=== PATIENT | male | born 1955 | race Caucasian/White ===

== ENCOUNTER 2018-04-07 09:48 | Observation (INO) ==
[2018-04-07 10:33] LABS: Basophils % 0.4 %; Eosinophils % 0.4 %; Hematocrit 46.3 % (37.5-50.1); Hemoglobin 16.9 g/dL (12.9-16.9); Immature Granulocytes % 0.4 % (0-4); Lymphocytes # 1.8 K/mcL (0.6-4.6); Lymphocytes % 25.3 %; Mean Corpuscular HGB Conc 36.5 g/dL (31.6-35.5); Mean Corpuscular Hemoglobin 31.7 pg (28.0-33.3); Mean Corpuscular Volume 86.9 fL (83.0-100.0); Mean Platelet Volume 10.4 fL (9.4-12.4); Monocytes # 0.7 K/mcL (0.0-1.3); Monocytes % 10.3 %; Neutrophils # 4.5 K/mcL (1.6-8.9); Platelet Count 143 K/mcL (140-400); Red Blood Count 5.33 M/mcL (4.19-5.50); Red Cell Distribution Width 13.4 % (11.5-14.5); Segmented Neutrophils % 63.2 %
[2018-04-07 10:38] LABS: INR 1.2; Prothrombin Time 12.8 Seconds (9.4-12.1)
--- NOTE | 2018-04-07 10:41 | Emergency Department Note ---
Disposition Clinical Impression: GI bleed Qualifiers: GI bleed type/associated pathology: unspecified gastrointestinal hemorrhage type Qualified Code(s): K92.2 - Gastrointestinal hemorrhage, unspecified Disposition: Admitted As Inpatient Condition: Good Referrals: Mona Funk MD [Primary Care Provider] - Forms: ED Satisfaction Letter GI Bleed HPI - General Chief complaint: ED GI Bleed Stated complaint: tarry stools from UC Time Seen by Provider: 04/07/18 09:55 Source: patient, family Limitations: no limitations Nursing Notes Reviewed: Yes Vital Signs Reviewed: Yes - History of Present Illness HPI Narrative: Patient presents today for evaluation of dark tarry stools. Sent from urgent care. Patient states that he has had symptoms for approximately 3 weeks. Started with initial episode of black tarry stool. Patient has since had several episodes of coffee-ground emesis. Patient states that he has had fatigue over the last 2 weeks. Over the last several days he has had exertional dyspnea as well as dizziness upon standing. Patient does have a history of abnormal endoscopy with precancerous cells that was greater than 5 years ago. Patient does take aspirin and occasional NSAIDs for aches and pains. Patient does not drink alcohol. - Related Data Home Medications Medication Instructions Recorded Confirmed Atorvastatin [Lipitor] 10 mg PO HS 04/07/18 04/07/18 Losartan [Cozaar] 25 mg PO DAILY 04/07/18 04/07/18 Metoprolol Succinate [Toprol Xl] 25 mg PO DAILY 04/07/18 04/07/18 Omeprazole [PriLOSEC] 40 mg PO DAILY 04/07/18 04/07/18 Allergies Allergy/AdvReac Type Severity Reaction Status Date / Time codeine Allergy Gastrointestinal Verified 04/07/18 12:19 Upset Review of Systems: CONSTITUTIONAL: No weight loss, fever, chills, weakness or fatigue. HEENT: Eyes: No visual changes. Ears, Nose, Throat: No hearing loss, difficulty talking or unable to swallow. SKIN: No rash or itching. CARDIOVASCULAR: No chest pain, chest pressure or chest discomfort. No palpitations or edema. RESPIRATORY: No shortness of breath, cough or sputum. GASTROINTESTINAL: Coffee-ground emesis and dark tarry stool GENITOURINARY: No burning on urination or hematuria. NEUROLOGICAL: Dizziness upon standing No headache, syncope, paralysis, ataxia, numbness or tingling in the extremities. No change in bowel or bladder control. MUSCULOSKELETAL: No muscle pain, back pain, joint pain or stiffness. Past Medical History - Past Medical History Medical history: Reports: non-contributory, aortic aneurysm, hypertension Psychiatric history: Reports: no psych history - Social History Smoking Status: Never smoker Smokeless Tobacco Status: No Alcohol use: Reports: none Drug use: Reports: none Physical Exam General: Well appearing, nontoxic, no acute distress Head: Normocephalic Atraumatic Eyes: PERRL, EOMI ENT: Airway patent, no stridor Neck: supple, no meningismus Chest: Lungs clear to auscultation bilateral Cardiac: Regular rate and rhythm, no murmurs, rubs or gallops Abdomen: soft, nontender, nondistended; no guarding, rebound, or tenderness to percussion Rectal exam shows a clean rectal vault without significant stool sample. Musculoskeletal: Calves symmetric, nontender, no palpable cord Skin: No rash, normal skin tone Neuro: Alert and Oriented to person, place, and time; No focal deficit - General Limitations: no limitations General appearance: alert, in no apparent distress Course - Reevaluation(s) Reevaluation #1: Patient's hemoglobin is stable. Patient did have a low blood pressure upon arrival. Patient does describe a significant history of melena as well as coffee-ground emesis. Patient not actively bleeding at this time. The patient was given Protonix as well as placed on a Protonix drip. Abnormal endoscopy in the past. Family history of esophageal cancer as well as colon cancer. - Consultations Consultation #1: Discussed with hospitalist. Patient accepted for admission. Vital Signs Temperature 97.8 F 04/07/18 09:49 Pulse Rate 106 04/07/18 09:49 Respiratory Rate 18 04/07/18 09:49 Blood Pressure 101/41 04/07/18 09:49 O2 Sat by Pulse Oximetry 96 04/07/18 09:49 Temperature 97.8 F 04/07/18 09:56 Pulse Rate 82 04/07/18 11:31 Respiratory Rate 18 04/07/18 11:31 Blood Pressure 111/80 04/07/18 11:31 O2 Sat by Pulse Oximetry 95 04/07/18 11:31 Oxygen Delivery Oxygen Delivery Room Air GI Bleed - Medical Records Medical records reviewed: Yes I reviewed the patient's medical records. - Lab Data Lab results reviewed: Yes I reviewed the patient's lab results. Result diagrams: 04/07/18 10:15 04/07/18 10:15 Lab Results 04/07/18 04/07/18 04/07/18 Range/Units 10:15 10:15 10:15 WBC 7.2 (4.3-11.1) K/mcL RBC 5.33 (4.19-5.50) M/mcL Hgb 16.9 (12.9-16.9) g/dL Hct 46.3 (37.5-50.1) % MCV 86.9 (83.0-100.0) fL MCH 31.7 (28.0-33.3) pg MCHC 36.5 H (31.6-35.5) g/dL RDW 13.4 (11.5-14.5) % Plt Count 143 (140-400) K/mcL MPV 10.4 (9.4-12.4) fL Immature Gran % 0.4 (0-4) % Seg Neutrophils % 63.2 % Lymphocytes % 25.3 % Monocytes % 10.3 % Eosinophils % 0.4 % Basophils % 0.4 % Neutrophils # 4.5 (1.6-8.9) K/mcL Lymphocytes # 1.8 (0.6-4.6) K/mcL Monocytes # 0.7 (0.0-1.3) K/mcL Eosinophils # 0.0 (0.0-0.6) K/mcL Basophils # 0.0 (0.0-0.2) K/mcL PT 12.8 H (9.4-12.1) Seconds INR 1.2 Sodium 134 L (136-145) mEq/L Potassium 3.6 (3.5-5.1) mEq/L Chloride 103 (98-107) mEq/L Carbon Dioxide 22 L (23-29) mEq/L BUN 23 (8-23) mg/dL Creatinine 1.23 (0.70-1.30) mg/dL Est GFR ( Amer) > 60 (> 60) Est GFR (Non-Af Amer) 59 L (> 60) BUN/Creatinine Ratio 19 (6-26) Glucose 105 (70-105) mg/dL Calculated Osmolality 282 (280-300) Calcium 9.0 (8.6-10.3) mg/dL Troponin I < 0.03 (< 0.04) ng/mL Blood Type Antibody Screen 04/07/18 Range/Units 10:15 WBC (4.3-11.1) K/mcL RBC (4.19-5.50) M/mcL Hgb (12.9-16.9) g/dL Hct (37.5-50.1) % MCV (83.0-100.0) fL MCH (28.0-33.3) pg MCHC (31.6-35.5) g/dL RDW (11.5-14.5) % Plt Count (140-400) K/mcL MPV (9.4-12.4) fL Immature Gran % (0-4) % Seg Neutrophils % % Lymphocytes % % Monocytes % % Eosinophils % % Basophils % % Neutrophils # (1.6-8.9) K/mcL Lymphocytes # (0.6-4.6) K/mcL Monocytes # (0.0-1.3) K/mcL Eosinophils # (0.0-0.6) K/mcL Basophils # (0.0-0.2) K/mcL PT (9.4-12.1) Seconds INR Sodium (136-145) mEq/L Potassium (3.5-5.1) mEq/L Chloride (98-107) mEq/L Carbon Dioxide (23-29) mEq/L BUN (8-23) mg/dL Creatinine (0.70-1.30) mg/dL Est GFR ( Amer) (> 60) Est GFR (Non-Af Amer) (> 60) BUN/Creatinine Ratio (6-26) Glucose (70-105) mg/dL Calculated Osmolality (280-300) Calcium (8.6-10.3) mg/dL Troponin I (< 0.04) ng/mL Blood Type O POSITIVE Antibody Screen NEGATIVE - EKG Data EKG attestation: Yes I reviewed and interpreted this EKG. EKG results narrative: EKG shows sinus rhythm with ventricular rate of 91. VA interval 162. QRS 79. QTC 405. Patient has no significant ST elevations or depressions. Patient does have Q-wave in lead 3. No acute changes from previous of 08/25/16.
[2018-04-07] MEDS ORDERED: Pantoprazole 40 MG VIAL IVP ONE (10:46)
[2018-04-07] MEDS ORDERED: 0.9 % Sodium Chloride 1,000 ML IVC ONE (10:46)
[2018-04-07 10:55] LABS: Troponin I < 0.03 ng/mL (< 0.04)
[2018-04-07 10:58] LABS: BUN/Creatinine Ratio 19 (6-26); Blood Urea Nitrogen 23 mg/dL (8-23); Carbon Dioxide 22 mEq/L (23-29); Chloride 103 mEq/L (98-107); Glucose 105 mg/dL (70-105); Osmolality,Calculated 282 (280-300); Potassium 3.6 mEq/L (3.5-5.1); Sodium 134 mEq/L (136-145); eGFR For African Americans > 60 (> 60); eGFR For Non-African Americans 59 (> 60)
[2018-04-07] MEDS: Pantoprazole 40 MG in 0.9 % Sodium Chloride Mini Bag 100 ML IVC SCH ×3 (11:24→21:33)
--- NOTE | 2018-04-07 13:05 | Emergency Department Note ---
Disposition Clinical Impression: GI bleed Qualifiers: GI bleed type/associated pathology: unspecified gastrointestinal hemorrhage type Qualified Code(s): K92.2 - Gastrointestinal hemorrhage, unspecified Disposition: Admitted As Inpatient Condition: Good Referrals: Moan Funk MD [Primary Care Provider] - General Adult HPI - General Chief complaint: ED GI Bleed Stated complaint: tarry stools from UC Time Seen by Provider: 04/07/18 09:55 Source: patient, family Limitations: no limitations - History of Present Illness Pain Scale: 0 - Related Data Home Medications Medication Instructions Recorded Confirmed Atorvastatin [Lipitor] 10 mg PO HS 04/07/18 04/07/18 Losartan [Cozaar] 25 mg PO DAILY 04/07/18 04/07/18 Metoprolol Succinate [Toprol Xl] 25 mg PO DAILY 04/07/18 04/07/18 Omeprazole [PriLOSEC] 40 mg PO DAILY 04/07/18 04/07/18 Allergies Allergy/AdvReac Type Severity Reaction Status Date / Time codeine Allergy Gastrointestinal Verified 04/07/18 12:19 Upset Past Medical History - Past Medical History Medical history: Reports: non-contributory, aortic aneurysm, hypertension Psychiatric history: Reports: no psych history - Social History Smoking Status: Never smoker Smokeless Tobacco Status: No Alcohol use: Reports: none Drug use: Reports: none Physical Exam - General Limitations: no limitations General appearance: alert, in no apparent distress Course Vital Signs Temperature 97.8 F 04/07/18 09:49 Pulse Rate 106 04/07/18 09:49 Respiratory Rate 18 04/07/18 09:49 Blood Pressure 101/41 04/07/18 09:49 O2 Sat by Pulse Oximetry 96 04/07/18 09:49 Temperature 97.8 F 04/07/18 09:56 Pulse Rate 82 04/07/18 11:31 Respiratory Rate 18 04/07/18 13:02 Blood Pressure 116/75 04/07/18 13:02 O2 Sat by Pulse Oximetry 95 04/07/18 11:31 Oxygen Delivery Oxygen Delivery Room Air Medical Decision Making - Lab Data Result diagrams: 04/07/18 10:15 04/07/18 10:15 Lab Results 04/07/18 04/07/18 04/07/18 Range/Units 10:15 10:15 10:15 WBC 7.2 (4.3-11.1) K/mcL RBC 5.33 (4.19-5.50) M/mcL Hgb 16.9 (12.9-16.9) g/dL Hct 46.3 (37.5-50.1) % MCV 86.9 (83.0-100.0) fL MCH 31.7 (28.0-33.3) pg MCHC 36.5 H (31.6-35.5) g/dL RDW 13.4 (11.5-14.5) % Plt Count 143 (140-400) K/mcL MPV 10.4 (9.4-12.4) fL Immature Gran % 0.4 (0-4) % Seg Neutrophils % 63.2 % Lymphocytes % 25.3 % Monocytes % 10.3 % Eosinophils % 0.4 % Basophils % 0.4 % Neutrophils # 4.5 (1.6-8.9) K/mcL Lymphocytes # 1.8 (0.6-4.6) K/mcL Monocytes # 0.7 (0.0-1.3) K/mcL Eosinophils # 0.0 (0.0-0.6) K/mcL Basophils # 0.0 (0.0-0.2) K/mcL PT 12.8 H (9.4-12.1) Seconds INR 1.2 Sodium 134 L (136-145) mEq/L Potassium 3.6 (3.5-5.1) mEq/L Chloride 103 (98-107) mEq/L Carbon Dioxide 22 L (23-29) mEq/L BUN 23 (8-23) mg/dL Creatinine 1.23 (0.70-1.30) mg/dL Est GFR ( Amer) > 60 (> 60) Est GFR (Non-Af Amer) 59 L (> 60) BUN/Creatinine Ratio 19 (6-26) Glucose 105 (70-105) mg/dL Calculated Osmolality 282 (280-300) Calcium 9.0 (8.6-10.3) mg/dL Troponin I < 0.03 (< 0.04) ng/mL Blood Type Antibody Screen 04/07/18 Range/Units 10:15 WBC (4.3-11.1) K/mcL RBC (4.19-5.50) M/mcL Hgb (12.9-16.9) g/dL Hct (37.5-50.1) % MCV (83.0-100.0) fL MCH (28.0-33.3) pg MCHC (31.6-35.5) g/dL RDW (11.5-14.5) % Plt Count (140-400) K/mcL MPV (9.4-12.4) fL Immature Gran % (0-4) % Seg Neutrophils % % Lymphocytes % % Monocytes % % Eosinophils % % Basophils % % Neutrophils # (1.6-8.9) K/mcL Lymphocytes # (0.6-4.6) K/mcL Monocytes # (0.0-1.3) K/mcL Eosinophils # (0.0-0.6) K/mcL Basophils # (0.0-0.2) K/mcL PT (9.4-12.1) Seconds INR Sodium (136-145) mEq/L Potassium (3.5-5.1) mEq/L Chloride (98-107) mEq/L Carbon Dioxide (23-29) mEq/L BUN (8-23) mg/dL Creatinine (0.70-1.30) mg/dL Est GFR ( Amer) (> 60) Est GFR (Non-Af Amer) (> 60) BUN/Creatinine Ratio (6-26) Glucose (70-105) mg/dL Calculated Osmolality (280-300) Calcium (8.6-10.3) mg/dL Troponin I (< 0.04) ng/mL Blood Type O POSITIVE Antibody Screen NEGATIVE Attestation Statement - Attestation Attestation: I examined this patient and my medical decision-making was reviewed with the Resident Physician. I agree with the documented findings, disposition and treatment plan as described except to the extent set forth below. Patient presents to the ED with a chief complaint of vomiting and diarrhea. Black tarry stools. Symptoms for a few weeks ago worse. On examination he is pleasant conversant. A little hypotensive with a systolic of 100 and diastolic of 70. This is abnormal for him as he takes blood pressure medication. Feels lightheaded when he stands. Short of breath as well. Hemoglobin stable. We will admit for further GI workup. Protonix ordered.
--- NOTE | 2018-04-07 15:26 | Internal Med History&Physical ---
<Isabella Danielle - Last Filed: 04/07/18 20:01> Date of Encounter: 04/07/18 Time of Encounter: 15:16 Internal Medicine - H&P: HPI Admitted From: Home Plans for Post Hospital Care: Home History of present illness: Mr. Rodrigez is a 62 year old male presents with melana and 3 coffee ground emesis. He was at the urgent care and advised to come to hospital for evaluation. Upper GI bleeding likely due to NSAID use over the past few weeks. The patient indicated that he was taking ibubrofen 400 mg every hs due to muscle pain r/t lifting weights. He also was taking 800 mg bid for a tooth infection a few weeks ago. The patient also takes asa 81 mg daily for a ascending aortic aneurysm. He indicated that he was also diagnosed with Nolan' s esophagus, a polyp, and precancerous cells in colon after having a EGD and colonoscopy more than 5 years. The wbc is 7.2, NA 124, hgb is 16.9. Past Med Surg Social Fam HX - Past Medical History Medical history: non-contributory, aortic aneurysm, GERD, hypertension Psychiatric history: no psych history - Social History Smoking Status: Never smoker Smokeless Tobacco Status: No Alcohol use: none Drug use: none - Family History Mother Adopted: No Family Member Ethnicity: Non- Living Status: Age at : 87 Cause of : Cancer Hx Family Cardiac Disorders: Yes (htn) Hx Family Respiratory Disorders: Yes (sticky lung) Hx Family Cancer: Yes (colon, breast, esophageal) Hx Family GI Disorders: Yes (gallbladder) Hx Family Genitourinary Disorders: Yes Hx Family Endocrine Disorder: Yes (diabetes) Hx Family Musculoskeletal Disorders: No Hx Family Neuromuscular Disorders: No Hx Family Neurologic Disorders: No Hx Family HEENT Disorders: No Hx Family Autoimmune Disorders: No Hx Family Reproductive Disorders: No Hx Family Psychosocial Disorders: No Hx Family Medical Disorders: No Father Family Member Ethnicity: Non- Living Status: Age at : 88 Hx Family Cardiac Disorders: Yes (aortic anuersym) Hx Family Respiratory Disorders: No Hx Family Cancer: Yes (tumor questionable) Hx Family GI Disorders: No Hx Family Genitourinary Disorders: No Hx Family Endocrine Disorder: Yes (Diabetes) Hx Family Musculoskeletal Disorders: No Hx Family Neuromuscular Disorders: No Hx Family Neurologic Disorders: Yes (Dementia) Hx Family HEENT Disorders: No Hx Family Autoimmune Disorders: No Hx Family Reproductive Disorders: No Hx Family Psychosocial Disorders: No Hx Family Medical Disorders: No Grandfather Living Status: Hx Family Cancer: Yes (colon CA) Internal Medicine - H&P: Meds Atorvastatin [Lipitor] 10 mg PO HS 04/07/18 [History] Losartan [Cozaar] 25 mg PO DAILY 04/07/18 [History] Metoprolol Succinate [Toprol Xl] 25 mg PO DAILY 04/07/18 [History] Omeprazole [PriLOSEC] 40 mg PO BID #60 cap 04/08/18 [Rx] Sucralfate [Carafate] 1 gm PO QIDAC #120 tablet 04/08/18 [Rx] 3 Allergy/AdvReac Type Severity Reaction Status Date / Time codeine Allergy Gastrointestinal Verified 04/07/18 12:19 Upset All Systems PM: A 10-system review of systems was performed and is negative for pertinent findings except as documented above in the HPI. - Constitutional Vitals: Temp Pulse Resp BP Pulse Ox 97.7 F 68 16 111/75 93 04/07/18 13:28 04/07/18 13:28 04/07/18 13:28 04/07/18 13:28 04/07/18 13:28 General appearance: Present: A&O X 3 - Head Head exam: Present: atraumatic, normocephalic - Eye Eye exam: Present: PERRL, conjuntiva pink, sclera anicteric Pupils: Present: PERRL - Neck Neck exam general surgery: Present: supple, trachea midline. Absent: lymphadenopathy - Respiratory Respiratory exam: Present: CTAB. Absent: accessory muscle use, rales, rhonchi, wheezes - Cardiovascular Cardiovascular exam: Present: RRR, +S1, +S2. Absent: diastolic murmur, gallop, rubs, systolic murmur - GI/Abdominal GI/Abdominal exam: Present: hypoactive bowel sounds, normal bowel sounds, soft, tenderness (Epigastric region), no peritoneal signs. Absent: distended - Extremities Exam Extremities exam: Present: warm, radial pulses palpable and symmetrical. Absent : calf tenderness, cyanotic, pedal edema - Neurological Exam Neurological exam: Present: CN II-XII intact, oriented X3, no focal deficits. Absent: pronater drift, facial droop, speech deficit - Skin Skin exam: Present: dry, intact Internal Med - H&P Results - Labs CBC & Chem 7: 04/07/18 19:03 04/07/18 10:15 - Assessment and plan (1) GI bleed Status: Acute Assessment and plan: IVF - NPO - H/H now and q 8 hr - Type and screen 2 U PRBC - Protonix drip - GI consult-> EGD/Colonoscopy - O2 to keep SpO2 > 92% - CBC, BMP, INR/PTT in AM - Compression stocking BLE for DVT prophylaxis Qualifiers: GI bleed type/associated pathology: unspecified gastrointestinal hemorrhage type Qualified Code(s): K92.2 - Gastrointestinal hemorrhage, unspecified (2) Black tarry stools Status: Acute Assessment and plan: Occult Stool x1 IVF - NPO - H/H now and q 8 hr - Will type and screen - Protonix drip - GI consult-> EGD/Colonoscopy - O2 to keep SpO2 > 92% - CBC, BMP, INR/PTT in AM - Compression stocking BLE for DVT prophylaxis - Time Spent With Patient Total time spent is greater than 50% in coordination of care (as documented) at patient's floor/unit and/or counseling patient: <Violet Gary - Last Filed: 04/20/18 01:22> Date of Encounter: 04/07/18 Internal Medicine - H&P: HPI History of present illness: Mr. Rodrigez is a 62 year old male All Systems PM: A 10-system review of systems was performed and is negative for pertinent findings except as documented above in the HPI. - Constitutional Vitals: Temp Pulse Resp BP Pulse Ox 97.5 F L 75 16 120/79 92 04/08/18 11:00 04/08/18 11:00 04/08/18 11:00 04/08/18 11:00 04/08/18 11:00 Internal Med - H&P Results - Labs CBC & Chem 7: 04/08/18 04:24 04/08/18 04:24 - Impressions ITS Impressions Echocardiogram 04/07/18 16:53 Impressions: LVEF 60-65%. Normal LV chamber size, wall thickness and function. Mild left ventricular diastolic dysfunction. Normal right ventricular structure and function. No evidence of pulmonary hypertension. No significant valvular dysfunction. Dilated aortic root, measuring up to 4.5 cm in the portion visualized. Consider dedicated imaging with a CT to evaluate the entire aortic root/thoracic aorta if clinically indicated. Left Ventricular Wall Motion: Rest Echo Findings All wall segments showed normal motion. Findings: Study Quality * Technically adequate exam. ECG Findings * Normal sinus rhythm. Left Ventricle * LVEF 60-65%. * Normal LV chamber size, wall thickness and function. * Mild left ventricular diastolic dysfunction. Right Ventricle * Normal right ventricular structure and function. Left Atrium * Mildly dilated left atrium. Right Atrium * Normal right atrial size. Aortic Valve * Trileaflet aortic valve with normal function. * No aortic regurgitation. * No aortic stenosis. Mitral Valve * Normal mitral valve structure and function. * No mitral regurgitation. * No mitral stenosis. Tricuspid Valve * Normal tricuspid valve structure and function. * Trace tricuspid regurgitation. * No evidence of pulmonary hypertension. Pulmonic Valve * Normal pulmonic valve structure and function. * Trace pulmonic regurgitation. Aorta * The aortic root is mildly dilated. Effacement of the sinotubular junction. Pericardium * The pericardium appears normal. IVC * Normal IVC dimensions and inspiratory collapse. Pulmonary Artery * Normal visualized portions of the main pulmonary artery. - Attending Attestation I personally and independently interviewed and examined the patient with [employer], and I reviewed the patient's medical records. I am in agreement with the assessment and proposed treatment plan. I discussed my findings and recommendation with the patient and answer all questions. The patient's medical records were edited to accurately reflect this encounter. - Time Spent With Patient Total time spent is greater than 50% in coordination of care (as documented) at patient's floor/unit and/or counseling patient:
--- NOTE | 2018-04-07 16:15 | General Surgery Consult Note ---
Date of Encounter: 04/07/18 Time of Encounter: 16:14 Assessment and Plan (1) Melena Current Visit: Yes Status: Acute discussed with patient that since he is having melanotic stools and his last colonoscopy was over 10 years ago we should also perform a colonoscopy along with his EGD tomorrow risks and benefits discussed and he wishes to proceed clears, nothing red npo midnight (2) Hematemesis Current Visit: Yes Status: Acute due to his hematemesis with history of barretts esophagus, persistent gerd symptoms and dysphagia will plan EGD with anesthesia, risks and benefits discussed and he wishes to proceed npo midnight Qualifiers: Nausea presence: with nausea Qualified Code(s): K92.0 - Hematemesis (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 will order stat ECHo (4) HTN (hypertension) Current Visit: Yes Status: Chronic continue home medication, monitor Qualifiers: Hypertension type: essential hypertension Qualified Code(s): I10 - Essential (primary) hypertension (5) HLD (hyperlipidemia) Current Visit: Yes Status: Chronic ok to continue home medication Qualifiers: Hyperlipidemia type: unspecified Qualified Code(s): E78.5 - Hyperlipidemia , unspecified (6) GERD (gastroesophageal reflux disease) Current Visit: Yes Status: Chronic continue PPI therapy, start carafate plan EGD tomorrow Qualifiers: Esophagitis presence: esophagitis presence not specified Qualified Code(s) : K21.9 - Gastro-esophageal reflux disease without esophagitis (7) History of Nolan's esophagus Current Visit: Yes Status: Chronic (8) Dysphagia Current Visit: Yes Status: Chronic planning to evaluate with egd Qualifiers: Dysphagia type: esophageal phase Qualified Code(s): R13.10 - Dysphagia, unspecified History of Present Illness Consult date: 04/07/18 Reason for consult: endoscopy Requesting physician: Isabella Danielle History of present illness: Patient is a 62 yo male who has a history of GERD/ barretts esophagus, colon lipoma. He presents with several weeks of melanotic stools that began about 6-8 weeks ago. He also began taking 800 mg ibprofen x2 daily for several days 6-8 weeks ago after being treated for a tooth infection. He has a history of gerd symptoms that are not controlled with his 40 mg po omeprazole. He often takes tums or additional OTC omeprazole to help with symptoms. He does not sleep propped up on pillows but once in a while reflux will wake him at night. He does complain of dysphagia that has been present and worsening over the last year. It is mostly to salad or meat. He will sometimes have to drink or cough to get the food to pass or come up. Several weeks ago he was having abdominal discomfort with his dyspepsia and then started experiencing black melanotic stools. This past monday he was up in [place] and had black hematemesis. Last night he had epigastric pain he could not get to stop with additional 40 mg OTC omeprazole, pain is not currently present. He does take ibprofen and naproxen prn for aches. He has a history of colonscopy 10-15 years and was told he had colon polyps but pathology in our system shows lipoma. He has an Aortic root aneurysm that per his was imaged about two years ago and was found to be 4.8 cm, he follows at [facility] for this. Past Med Surg Social Fam HX - Past Medical History Medical history: non-contributory, aortic aneurysm, GERD (history Barretts diagnosed 15 years ago), hyperlipidemia, hypertension, other (Aortic root aneurysm) Psychiatric history: no psych history - Past Surgical History Surgical History: cholecystectomy (lap), orthopedic, other (right rotator cuff repair; neck surgery for disc injury), vasectomy - Social History Smoking Status: Never smoker Smokeless Tobacco Status: No (used to chew tobacco for 30 years, used to do snuff - qquit 10 weeks ago) Alcohol use: none Drug use: none Occupational status: employed Current living situation: Home - Independent, With Family Activity Level: Independent ambulation - Family History Mother Adopted: No Family Member Ethnicity: Non- Living Status: Age at : 87 Cause of : Cancer Hx Family Cardiac Disorders: Yes (htn) Hx Family Respiratory Disorders: Yes (sticky lung) Hx Family Cancer: Yes (colon mass, breast CA, esophageal CA) Hx Family GI Disorders: Yes (gallbladder) Hx Family Genitourinary Disorders: Yes Hx Family Endocrine Disorder: Yes (diabetes) Hx Family Musculoskeletal Disorders: No Hx Family Neuromuscular Disorders: No Hx Family Neurologic Disorders: No Hx Family HEENT Disorders: No Hx Family Autoimmune Disorders: No Hx Family Reproductive Disorders: No Hx Family Psychosocial Disorders: No Hx Family Medical Disorders: No Father Family Member Ethnicity: Non- Living Status: Age at : 88 Hx Family Cardiac Disorders: Yes (aortic anuersym) Hx Family Respiratory Disorders: No Hx Family Cancer: Yes (tumor questionable) Hx Family GI Disorders: No Hx Family Genitourinary Disorders: No Hx Family Endocrine Disorder: Yes (Diabetes) Hx Family Musculoskeletal Disorders: No Hx Family Neuromuscular Disorders: No Hx Family Neurologic Disorders: Yes (Dementia) Hx Family HEENT Disorders: No Hx Family Autoimmune Disorders: No Hx Family Reproductive Disorders: No Hx Family Psychosocial Disorders: No Hx Family Medical Disorders: No Grandfather Living Status: Hx Family Cancer: Yes (colon CA) Medications and Allergies Atorvastatin [Lipitor] 10 mg PO HS 04/07/18 [History] Losartan [Cozaar] 25 mg PO DAILY 04/07/18 [History] Metoprolol Succinate [Toprol Xl] 25 mg PO DAILY 04/07/18 [History] Omeprazole [PriLOSEC] 40 mg PO DAILY 04/07/18 [History] 3 Allergy/AdvReac Type Severity Reaction Status Date / Time codeine Allergy Gastrointestinal Verified 04/07/18 12:19 Upset Review of Systems All systems PM: reviewed and no additional remarkable complaints except as stated All systems PM: The remainder of the systems were reviewed and are negative General Surgery Exam Initial Vital Signs Temp Pulse Resp BP Pulse Ox 97.8 F 106 18 101/41 96 04/07/18 09:49 04/07/18 09:49 04/07/18 09:49 04/07/18 09:49 04/07/18 09:49 - General physical appearance well developed, well nourished, no distress - Eyes PERRL, normal ocular movement - ENT normal mucosa, normocephalic - Neck trachea midline - Respiratory normal expansion, normal respiratory effort, clear to auscultation - Cardiovascular Cardiovascular exam: Present: RRR, no murmurs/rubs/gallops - Abdomen Abdomen general surgery: Present: bowel sounds present, soft, non tender. Absent: distended, guarding, rebound - Integumentary Integumentary general surgery: Present: warm and dry, no abnormal pigmentation - Neurologic Present: CN 2-12 grossly intact - Musculoskeletal Present: normal gait, normal posture - Psychiatric Psychiatric general surgery: Present: A&Ox3, speech is normal Exam Initial Vital Signs Temp Pulse Resp BP Pulse Ox 97.8 F 106 18 101/41 96 04/07/18 09:49 04/07/18 09:49 04/07/18 09:49 04/07/18 09:49 04/07/18 09:49 Results - Labs 04/07/18 10:15 04/07/18 10:15 Abnormal lab results MCHC 36.5 g/dL (31.6-35.5) H 04/07/18 10:15 PT 12.8 Seconds (9.4-12.1) H 04/07/18 10:15 Sodium 134 mEq/L (136-145) L 04/07/18 10:15 Carbon Dioxide 22 mEq/L (23-29) L 04/07/18 10:15 Est GFR (Non-Af Amer) 59 (> 60) L 04/07/18 10:15 All other labs normal. Vital Signs Temp Pulse Resp BP Pulse Ox 04/07/18 13:28 97.7 F 68 16 111/75 93 04/07/18 13:02 18 116/75 04/07/18 11:31 82 18 111/80 95 04/07/18 09:56 97.8 F 106 18 101/41 96 04/07/18 09:49 97.8 F 106 18 101/41 96 Intake and Output 04/07/18 04/07/18 04/07/18 07:59 15:59 23:59 Other: Stool Size Small Stool Characteristics Tarry Stool Color Black Weight 99.1 kg Patient Weight 04/07/18 23:59 Weight 99.1 kg Consult Discharge Plan - Plan Referrals: Mona Funk MD [Primary Care Provider] -
[2018-04-07] MEDS ORDERED: Polyethylene Glycol 3350 255 GM POWDER PO ONE (16:56)
[2018-04-07] MEDS: Sucralfate 1 GM TABLET PO SCH ×2 (17:21→22:21)
[2018-04-07] MEDS: 0.9 % Sodium Chloride 1,000 ML IVC SCH (17:22)
[2018-04-07 19:21] LABS: Hematocrit 40.1 % (37.5-50.1)
[2018-04-07 19:23] LABS: Hemoglobin 14.4 g/dL (12.9-16.9)
[2018-04-08] MEDS: 0.9 % Sodium Chloride 1,000 ML IVC SCH ×2 (01:11→11:34)
[2018-04-08] MEDS: Pantoprazole 40 MG in 0.9 % Sodium Chloride Mini Bag 100 ML IVC SCH ×2 (02:42→11:33)
[2018-04-08 05:23] LABS: Basophils % 0.4 %; Eosinophils # 0.1 K/mcL (0.0-0.6); Eosinophils % 1.1 %; Hematocrit 37.9 % (37.5-50.1); Immature Granulocytes % 0.2 % (0-4); Lymphocytes % 32.4 %; Mean Corpuscular HGB Conc 36.9 g/dL (31.6-35.5); Mean Corpuscular Hemoglobin 32.2 pg (28.0-33.3); Mean Corpuscular Volume 87.1 fL (83.0-100.0); Mean Platelet Volume 10.2 fL (9.4-12.4); Monocytes # 0.4 K/mcL (0.0-1.3); Monocytes % 8.2 %; Neutrophils # 2.8 K/mcL (1.6-8.9); Nucleated Red Blood Cells 0.6 /100 WBC (0); Platelet Count 110 K/mcL (140-400); Red Blood Count 4.35 M/mcL (4.19-5.50); Red Cell Distribution Width 13.3 % (11.5-14.5); Segmented Neutrophils % 57.7 %
[2018-04-08 05:24] LABS: INR 1.2; Prothrombin Time 13.3 Seconds (9.4-12.1)
[2018-04-08 05:27] LABS: Lymphocytes # 1.6 K/mcL (0.6-4.6)
[2018-04-08 05:43] LABS: Platelet Estimate Decreased (Normal); Reactive Lymphocytes Present (Not Present)
[2018-04-08 05:45] LABS: BUN/Creatinine Ratio 14 (6-26); Blood Urea Nitrogen 14 mg/dL (8-23); Calcium 8.5 mg/dL (8.6-10.3); Carbon Dioxide 24 mEq/L (23-29); Chloride 107 mEq/L (98-107); Glucose 90 mg/dL (70-105); Osmolality,Calculated 282 (280-300); Potassium 3.6 mEq/L (3.5-5.1); Sodium 136 mEq/L (136-145); eGFR For African Americans > 60 (> 60); eGFR For Non-African Americans > 60 (> 60)
[2018-04-08] MEDS: Sucralfate 1 GM TABLET PO SCH ×2 (07:30→11:41)
[2018-04-08] MEDS ORDERED: Metoprolol XL (24 HR) Succ 25 MG TAB.ER.24H PO SCH (09:00)
--- NOTE | 2018-04-08 09:50 | Anesthesia Evaluation PreOp ---
Date of Encounter: 04/08/18 Time of Encounter: 09:50 - Past History Planned Operation: Double Endo Cardiac History: HTN, Other (Aortic Aneurysm...stable, being followed by [facility]) Pulmonary History: Former smoker ENVIRONMENTAL COMPLIANCE INSPECTOR History: Denies Any Significant HX Other Medical History: GERD Anesthesia History: No Prior Anesthetic Complications Alcohol Use: none Drug use: none Medications and Allergies Atorvastatin [Lipitor] 10 mg PO HS 04/07/18 [History] Losartan [Cozaar] 25 mg PO DAILY 04/07/18 [History] Metoprolol Succinate [Toprol Xl] 25 mg PO DAILY 04/07/18 [History] Omeprazole [PriLOSEC] 40 mg PO DAILY 04/07/18 [History] 3 Allergy/AdvReac Type Severity Reaction Status Date / Time codeine Allergy Gastrointestinal Verified 04/07/18 12:19 Upset - Meds/Allergy Pre-op Review Medications Reviewed: Yes Allergies Reviewed: Yes Beta Blockers on Current Med List: No Anesthesia Results - Labs 04/08/18 04:24 04/08/18 04:24 Laboratory Tests 04/08/18 04/08/18 04:24 04:24 Hgb 14.0 Hct 37.9 Plt Count 110 L Sodium 136 Potassium 3.6 BUN 14 Creatinine 0.99 - Imaging EKG: report reviewed (SR) Additional studies: ECHO EF 65%, Dilated Aortic Root Anesthesia Exam Vital Signs/O2 Sat/Glucose, Most Current Temp Pulse Resp BP Pulse Ox 04/08/18 07:24 94 04/08/18 07:04 97.5 F L 61 16 134/81 94 Height: 5'9 Weight: 218 lbs NPO (# of Hours): MN Pain Scale: 0 - HEENT Pupil (Motor): Pupils equal, EOMI Mallampati: II Teeth: Normal Oral Opening: Less than or equal to 3 - ENVIRONMENTAL COMPLIANCE INSPECTOR LOC: Oriented ENVIRONMENTAL COMPLIANCE INSPECTOR Motor: Normal RUE, Normal LUE, Normal RLE, Normal LLE, Normal Face ENVIRONMENTAL COMPLIANCE INSPECTOR Sensory: Normal: RUE, LUE, RLE, LLE, Face - Cardiac Rhythm: Regular Murmur: None JVD: No Carotid Bruit: No - Pulmonary Breath Sounds: bilateral Clear Respiratory Effort: Symmetrical Anesthesia Assess/Plan ASA Score: 2 Modified Samantha Scale for Level of Consciousness: Cooperative, oriented, and tranquil Anesthetic Plan: MAC Monitoring Plan: Standard Monitors Recovery Plan: Other (Discussed MAC, possible GA, agrees to proceed)
[2018-04-08] MEDS ORDERED: Ondansetron 4 MG/2 ML VIAL ONE (10:25)
[2018-04-08] MEDS ORDERED: Lidocaine -MPF 2% 2 ML VIAL ONE (10:25)
[2018-04-08] MEDS ORDERED: Propofol 500 MG/50 ML INFUS..BTL ONE (10:25)
[2018-04-08] MEDS ORDERED: *HR* FentaNYL (PF) 100 MCG/2 ML VIAL ONE (10:26)
--- NOTE | 2018-04-08 10:55 | General Surgery Progress Note ---
Date of Encounter: 04/08/18 Time of Encounter: 07:30 - Assessment and Plan (1) Melena Current Visit: Yes Status: Acute discussed with patient that since he is having melanotic stools and his last colonoscopy was over 10 years ago we should also perform a colonoscopy along with - Patient NPO. - Scheduled to have EGD later this morning. (2) Hematemesis Current Visit: Yes Status: Acute due to his hematemesis with history of barretts esophagus, persistent gerd symptoms and dysphagia will plan EGD with anesthesia, risks and benefits discussed and he wishes to proceed. - NPO. - Scheduled for EGD later this morning. 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 Dilated aortic root measuring 4.5 cm. Chest X-Ray 04/07/18 10:49 IMPRESSION: No acute process. D/ / Roel Renee MD / Roel Renee MD Interpreting Provider: Roel Renee MD Echocardiogram 04/07/18 16:53 Impressions: LVEF 60-65%. Normal LV chamber size, wall thickness and function. Mild left ventricular diastolic dysfunction. Normal right ventricular structure and function. No evidence of pulmonary hypertension. No significant valvular dysfunction. Dilated aortic root, measuring up to 4.5 cm in the portion visualized. Consider dedicated imaging with a CT to evaluate the entire aortic root/thoracic aorta if clinically indicated. Left Ventricular Wall Motion: Rest Echo Findings All wall segments showed normal motion. Findings: Study Quality * Technically adequate exam. ECG Findings * Normal sinus rhythm. Left Ventricle * LVEF 60-65%. * Normal LV chamber size, wall thickness and function. * Mild left ventricular diastolic dysfunction. Right Ventricle * Normal right ventricular structure and function. Left Atrium * Mildly dilated left atrium. Right Atrium * Normal right atrial size. Aortic Valve * Trileaflet aortic valve with normal function. * No aortic regurgitation. * No aortic stenosis. Mitral Valve * Normal mitral valve structure and function. * No mitral regurgitation. * No mitral stenosis. Tricuspid Valve * Normal tricuspid valve structure and function. * Trace tricuspid regurgitation. * No evidence of pulmonary hypertension. Pulmonic Valve * Normal pulmonic valve structure and function. * Trace pulmonic regurgitation. Aorta * The aortic root is mildly dilated. Effacement of the sinotubular junction. Pericardium * The pericardium appears normal. IVC * Normal IVC dimensions and inspiratory collapse. Pulmonary Artery * Normal visualized portions of the main pulmonary artery. (4) HTN (hypertension) Current Visit: Yes Status: Chronic continue home medication, monitor Qualifiers: Hypertension type: essential hypertension Qualified Code(s): I10 - Essential (primary) hypertension (5) HLD (hyperlipidemia) Current Visit: Yes Status: Chronic ok to continue home medication Qualifiers: Hyperlipidemia type: unspecified Qualified Code(s): E78.5 - Hyperlipidemia , unspecified (6) GERD (gastroesophageal reflux disease) Current Visit: Yes Status: Chronic continue PPI therapy, start carafate - EGD later today. Qualifiers: Esophagitis presence: esophagitis presence not specified Qualified Code(s) : K21.9 - Gastro-esophageal reflux disease without esophagitis (7) History of Nolan's esophagus Current Visit: Yes Status: Chronic (8) Dysphagia Current Visit: Yes Status: Chronic EGD evaluation later this morning. Qualifiers: Dysphagia type: esophageal phase Qualified Code(s): R13.10 - Dysphagia, unspecified Subjective Narrative: Patient denies any abdominal pain. Denies any nausea or vomiting. Denies any chest pain or shortness of breath. Denies any dizziness, headaches, or light headiness. Denies any fever or chills. Admits to bowel movements but denies any soft stool or hematochezia or melena. Objective VITAL SIGNS: Reviewed. See [facility] GENERAL: No apparent distress. HEENT: [Normocephalic, PER, EOMi, oropharynx pink/moist, no JVD noted.] CV: b/l rad pulses 2+, RRR, no murmurs or gallops, no JVD RESPIRATORY: CTAB without wheezes, rales, or rhonchi ABD: soft, non-tender, no rebound/guarding/rigidity, no peritoneal signs. Normal bowel sounds. EXTREMITY: grossly normal motor function, no pedal edema, peripheral pulses 2+ b /l NEUROLOGIC EXAM: AOx3, obeys commands, no speech deficits. PSYCHIATRIC: normal mood and affect SKIN: no gross lesions, rashes, or skin changes Vital Signs - Last 8 Hours Temp Pulse Resp BP Pulse Ox 04/08/18 10:21 98.7 F 57 16 177/83 100 04/08/18 07:24 94 04/08/18 07:04 97.5 F L 61 16 134/81 94 Intake and Output 04/07/18 04/08/18 04/08/18 23:59 07:59 15:59 Intake Total 440 / 440 1100 / 1100 Balance 440 / 440 1100 / 1100 Intake: IV Fluids 200 / 200 1100 / 1100 0.9 % Sodium Chloride 1,000 ML 1000 / 1000 @ 125 mls/hr IVC .Q8H ALBERT Rx#: [id number] Protonix 40 MG In 0.9 % Sodium 200 / 200 100 / 100 Chloride (Mini-Bag +) 100 ML @ 20 mls/hr IVC .Q5H ALBERT Rx#: [id number] Oral 240 / 240 Other: # Voids 4 Blood Glucose* 81 - Labs 04/08/18 04:24 04/08/18 04:24 Diabetes panel 04/08/18 Range/Units 04:24 Sodium 136 (136-145) mEq/L Potassium 3.6 (3.5-5.1) mEq/L Chloride 107 (98-107) mEq/L Carbon Dioxide 24 (23-29) mEq/L BUN 14 (8-23) mg/dL Creatinine 0.99 (0.70-1.30) mg/dL Glucose 90 (70-105) mg/dL Calcium 8.5 L (8.6-10.3) mg/dL Calcium panel 04/08/18 Range/Units 04:24 Calcium 8.5 L (8.6-10.3) mg/dL Pituitary panel 04/08/18 Range/Units 04:24 Sodium 136 (136-145) mEq/L Potassium 3.6 (3.5-5.1) mEq/L Chloride 107 (98-107) mEq/L Carbon Dioxide 24 (23-29) mEq/L BUN 14 (8-23) mg/dL Creatinine 0.99 (0.70-1.30) mg/dL Glucose 90 (70-105) mg/dL Calcium 8.5 L (8.6-10.3) mg/dL Adrenal panel 05/20/18 Range/Units 04:24 Sodium 136 (136-145) mEq/L Potassium 3.6 (3.5-5.1) mEq/L Chloride 107 (98-107) mEq/L Carbon Dioxide 24 (23-29) mEq/L BUN 14 (8-23) mg/dL Creatinine 0.99 (0.70-1.30) mg/dL Glucose 90 (70-105) mg/dL Calcium 8.5 L (8.6-10.3) mg/dL Consult Discharge Plan - Plan Referrals: Mona Funk MD [Primary Care Provider] -
[2018-04-08] MEDS ORDERED: *HR* Propofol 200 MG/20 ML VIAL IVP ONE (11:08)
[2018-04-08 11:31] VITALS: BP 120/79
--- NOTE | 2018-04-08 12:20 | Discharge Summary ---
Orders not resulted at time of discharge: Pending orders 04/08/18 10:44 H. pylori Urease Culture [RM] Stat 04/08/18 10:51 Surgical Pathology [PTH] Routine 04/09/18 04:00 BMP [Basic Metabolic Panel] AM 0400 CBC [Complete Blood Count] [HEME] AM 0400 Date of Encounter: 04/08/18 Time of Encounter: 12:17 - Discharge Diagnosis (1) Melena Priority: Secondary Status: Acute (2) Hematemesis Priority: Primary Status: Acute Qualifiers: Nausea presence: with nausea Qualified Code(s): K92.0 - Hematemesis (3) Aortic root aneurysm Priority: Secondary Status: Chronic (4) HTN (hypertension) Priority: Secondary Status: Chronic Qualifiers: Hypertension type: essential hypertension Qualified Code(s): I10 - Essential (primary) hypertension (5) HLD (hyperlipidemia) Priority: Secondary Status: Chronic Qualifiers: Hyperlipidemia type: unspecified Qualified Code(s): E78.5 - Hyperlipidemia , unspecified (6) GERD (gastroesophageal reflux disease) Priority: Secondary Status: Chronic Qualifiers: Esophagitis presence: esophagitis presence not specified Qualified Code(s) : K21.9 - Gastro-esophageal reflux disease without esophagitis (7) History of Nolan's esophagus Priority: Secondary Status: Chronic (8) Dysphagia Priority: Secondary Status: Chronic Qualifiers: Dysphagia type: esophageal phase Qualified Code(s): R13.10 - Dysphagia, unspecified General Surgery Exam Initial Vital Signs Temp Pulse Resp BP Pulse Ox 97.8 F 106 18 101/41 96 04/07/18 09:49 04/07/18 09:49 04/07/18 09:49 04/07/18 09:49 04/07/18 09:49 - General physical appearance well developed, well nourished, no distress - Eyes PERRL, normal ocular movement - ENT normal mucosa, normocephalic - Respiratory normal respiratory effort, clear to auscultation - Cardiovascular Cardiovascular exam: Present: RRR, no murmurs/rubs/gallops - Abdomen Abdomen general surgery: Present: bowel sounds present, soft, non tender - Integumentary Integumentary general surgery: Present: warm and dry, no abnormal pigmentation - Neurologic Present: CN 2-12 grossly intact - Musculoskeletal Present: normal posture - Psychiatric Psychiatric general surgery: Present: A&Ox3, speech is normal - Hospital Course Hospital course: Mr. Rodrigez is a 62 year old male admitted with melena and hemoptysis. He underwent EGD and colonoscopy. EGD showed hiatal hernia, presumed Barretts (pt with history of barretts), gastritis, gasric polyps, antral mucosal lesion biopsied. Colonoscopy with diverticulosis and AVM which was argon coagulated. He is discharged home in stable condition. will do manometry as outpatient high fiber diet daily fiber supplement 8, 8 oz water daily omeprazole 40 m g BID x 1 month then back down to 40 mg daily carafate 1 gm po QID for 1 month then stop - Time Spent with Patient Total time spent providing and/or coordinating discharge services: - Discharge Medications Prescriptions: Omeprazole [PriLOSEC] 40 mg PO BID #60 cap Sucralfate [Carafate] 1 gm PO QIDAC #120 tablet Home Medications: Atorvastatin [Lipitor] 10 mg PO HS 04/07/18 [History] Losartan [Cozaar] 25 mg PO DAILY 04/07/18 [History] Metoprolol Succinate [Toprol Xl] 25 mg PO DAILY 04/07/18 [History] Omeprazole [PriLOSEC] 40 mg PO BID #60 cap 04/08/18 [Rx] Sucralfate [Carafate] 1 gm PO QIDAC #120 tablet 04/08/18 [Rx] Allergies/Adverse Reactions: 3 Allergy/AdvReac Type Severity Reaction Status Date / Time codeine Allergy Gastrointestinal Verified 04/07/18 12:19 Upset Date of admission: 04/07/18 12:48 Primary care physician: Mona Funk, Consults: 04/07/18 15:12 Consult to Gastroenterology [CONS] Routine Consulting Provider: Gastroenterology Mandie Reason for Consult: Coffee ground emesis and melana Time Notified: 15:14 Call Completed: No Discharging clinician: Praveena Vences Anticipated date of discharge: 04/08/18 Labs on day of discharge: Labs from last 24 hours 04/08/18 04/08/18 04/08/18 05:06 04:24 04:24 WBC RBC Hgb Hct MCV MCH MCHC RDW Plt Count MPV Immature Gran % Seg Neutrophils % Lymphocytes % Monocytes % Eosinophils % Basophils % Neutrophils # Lymphocytes # Monocytes # Eosinophils # Basophils # Nucleated RBCs/100 WBC Reactive Lymphocytes Platelet Estimate PT 13.3 H INR 1.2 Sodium 136 Potassium 3.6 Chloride 107 Carbon Dioxide 24 BUN 14 Creatinine 0.99 Est GFR ( Amer) > 60 Est GFR (Non-Af Amer) > 60 BUN/Creatinine Ratio 14 Glucose 90 POC Glucose 81 Calculated Osmolality 282 Calcium 8.5 L 04/08/18 04/07/18 04:24 19:03 WBC 4.8 RBC 4.35 Hgb 14.0 14.4 D Hct 37.9 40.1 MCV 87.1 MCH 32.2 MCHC 36.9 H RDW 13.3 Plt Count 110 L MPV 10.2 Immature Gran % 0.2 Seg Neutrophils % 57.7 Lymphocytes % 32.4 Monocytes % 8.2 Eosinophils % 1.1 Basophils % 0.4 Neutrophils # 2.8 Lymphocytes # 1.6 Monocytes # 0.4 Eosinophils # 0.1 Basophils # 0.0 Nucleated RBCs/100 WBC 0.6 H Reactive Lymphocytes Present A Platelet Estimate Decreased L PT INR Sodium Potassium Chloride Carbon Dioxide BUN Creatinine Est GFR ( Amer) Est GFR (Non-Af Amer) BUN/Creatinine Ratio Glucose POC Glucose Calculated Osmolality Calcium - Impressions ITS Impressions Echocardiogram 04/07/18 16:53 Impressions: LVEF 60-65%. Normal LV chamber size, wall thickness and function. Mild left ventricular diastolic dysfunction. Normal right ventricular structure and function. No evidence of pulmonary hypertension. No significant valvular dysfunction. Dilated aortic root, measuring up to 4.5 cm in the portion visualized. Consider dedicated imaging with a CT to evaluate the entire aortic root/thoracic aorta if clinically indicated. Left Ventricular Wall Motion: Rest Echo Findings All wall segments showed normal motion. Findings: Study Quality * Technically adequate exam. ECG Findings * Normal sinus rhythm. Left Ventricle * LVEF 60-65%. * Normal LV chamber size, wall thickness and function. * Mild left ventricular diastolic dysfunction. Right Ventricle * Normal right ventricular structure and function. Left Atrium * Mildly dilated left atrium. Right Atrium * Normal right atrial size. Aortic Valve * Trileaflet aortic valve with normal function. * No aortic regurgitation. * No aortic stenosis. Mitral Valve * Normal mitral valve structure and function. * No mitral regurgitation. * No mitral stenosis. Tricuspid Valve * Normal tricuspid valve structure and function. * Trace tricuspid regurgitation. * No evidence of pulmonary hypertension. Pulmonic Valve * Normal pulmonic valve structure and function. * Trace pulmonic regurgitation. Aorta * The aortic root is mildly dilated. Effacement of the sinotubular junction. Pericardium * The pericardium appears normal. IVC * Normal IVC dimensions and inspiratory collapse. Pulmonary Artery * Normal visualized portions of the main pulmonary artery. - Patient Status Disposition: Home, Self-Care Condition: Good Overall status at discharge: patient is back to baseline - Discharge Instructions Instructions: Diverticulosis (GEN), Hiatal Hernia (GEN) Follow Up With: Mona Funk MD [Primary Care Provider] - Forms: ED Satisfaction Letter Additional Instructions: will do manometry as outpatient high fiber diet daily fiber supplement 8, 8 oz water daily omeprazole 40 m g BID x 1 month then back down to 40 mg daily carafate 1 gm po QID for 1 month then stop - Diet and Activity Activity: increase activity as tolerated Diet: advance to your usual diet
--- NOTE | 2018-04-08 13:36 | Anesthesia Evaluation Post Op ---
Date of Encounter: 04/08/18 Time of Encounter: 11:10 - Vital Signs Vital Signs: Vital Signs/O2 Sat/Glucose, Most Current Temp Pulse Resp BP Pulse Ox 04/08/18 11:00 97.5 F L 75 16 120/79 92 04/08/18 10:21 98.7 F 57 16 177/83 100 - Lungs Lungs: Clear Ascult./Percussion - Airway Airway: Non-obstructed - Cardiovascular Regular Rate - Mental Status Mental Status: Alert & Oriented, Answers Appropriately - Pain Pain Scale: 0 - Nausea Vomiting Nausea Vomiting: Not Present - Hydration Hydration: NPO - Discharge PostOp Status: Transfer Patient to floor
--- NOTE | 2018-04-09 14:24 | Electrocardiograph Report ---
[place] [id number] Test Date: 2018-04-07 Pat Name: Michael Rodrigez Department: 103 Room: 3A11 Gender: M Associate Financial Analyst: [place] : 1955 Requested By: Teena See Order Number: [id number] Reading MD: Ksenia Travis Measurements Intervals [place] Rate: 91 P: 51 [place]: 162 QRS: 14 QRSD: 79 T: 44 QT: 356 QTc: 405 Interpretive Statements SINUS RHYTHM Electronically Signed On 04-09-2018 14:22:13 EDT by Ksenia Travis
== END 2018-04-08 13:15 | disposition home or self-care (01) ==
LOC: 3ANU 09:48 → EMEROO 09:48 → 3ANU 13:16
PROVIDERS: ADMIT General Practice; ATTEND General Practice
PROC: ENDOCCB (2018-04-08 09:50)
PROC: ENDOEBX (2018-04-08 09:50)

== ENCOUNTER 2022-01-08 11:05 | Observation (INO) ==
[2022-01-08] MEDS ORDERED: Isovue-370 500 ML BOTTLE IVP ONE (11:24)
[2022-01-08 12:02] LABS: Immature Granulocytes % 0.3 % (0-4); Red Cell Distribution Width 13.2 % (11.5-14.5)
[2022-01-08 12:05] LABS: Basophils # 0.1 K/mcL (0.0-0.2); Basophils % 0.7 %; Eosinophils # 0.1 K/mcL (0.0-0.6); Eosinophils % 1.4 %; Hematocrit 44.2 % (37.5-50.1); Hemoglobin 15.3 g/dL (12.9-16.9); Immature Platelets 3.6 % (1.1-6.1); Lymphocytes # 1.7 K/mcL (0.6-4.6); Lymphocytes % 23.3 %; Mean Corpuscular HGB Conc 34.6 g/dL (31.6-35.5); Mean Corpuscular Volume 89.7 fL (83.0-100.0); Mean Platelet Volume 10.2 fL (9.4-12.4); Monocytes # 0.7 K/mcL (0.0-1.3); Monocytes % 9.3 %; Neutrophils # 4.6 K/mcL (1.6-8.9); Platelet Count 109 K/mcL (140-400); Red Blood Count 4.93 M/mcL (4.19-5.50); White Blood Count 7.1 K/mcL (4.3-11.1)
[2022-01-08 12:13] LABS: INR 1.2; Prothrombin Time 13.8 Seconds (9.4-12.1)
[2022-01-08 12:16] LABS: Activated Partial Thrombo Time 29.7 Seconds (26.0-36.0)
[2022-01-08 12:23] LABS: BUN/Creatinine Ratio 14 (6-26); Blood Urea Nitrogen 14 mg/dL (8-23); Calcium 9.5 mg/dL (8.6-10.3); Carbon Dioxide 25 mEq/L (23-29); Chloride 104 mEq/L (98-107); Glucose 128 mg/dL (70-105); Osmolality,Calculated 284 (280-300); Potassium 3.9 mEq/L (3.5-5.1); Sodium 136 mEq/L (136-145); Troponin I < 0.03 ng/mL (< 0.04); eGFR For African Americans > 60 (> 60); eGFR For Non-African Americans > 60 (> 60)
[2022-01-08] MEDS ORDERED: Aspirin 325 MG TABLET PO ONE (13:49)
[2022-01-08] MEDS ORDERED: Ondansetron 4 MG/2 ML VIAL IVP PRN (14:35)
[2022-01-08] MEDS ORDERED: Naloxone 0.4 MG/ML INJ IVP PRN (14:35)
[2022-01-08] MEDS ORDERED: Melatonin 3 MG TABLET PO PRN (14:35)
[2022-01-08] MEDS: carvediloL 6.25 MG TABLET PO SCH (15:55)
[2022-01-09] MEDS ORDERED: Regadenoson 0.4 MG/5 ML SYRINGE IVP ONE (07:22)
[2022-01-09] MEDS: carvediloL 6.25 MG TABLET PO SCH ×2 (08:32→12:31)
[2022-01-09 11:57] VITALS: BP 138/93; PULSE 59; TEMP 97.3; O2SAT 95
[2022-01-09] MEDS ORDERED: Aspirin Enteric Coated 81 MG Tablet PO SCH (12:45)
== END 2022-01-09 13:33 | disposition home or self-care (01) ==
LOC: EMEROOARM 11:05 → 3BNU 11:05
PROVIDERS: ADMIT Internal Medicine; ATTEND Internal Medicine